=== PATIENT | male | born 1995 | race African-American/Black ===

== ENCOUNTER 2020-03-17 21:28 | Emergency (ER) | payer OTHER ==
[~2020-03-17] VITALS: Ht 172.7 cm; Wt 108.9 kg
[2020-03-17] MEDS ORDERED: NOHOMEMEDICATIONS (21:35)
[2020-03-17 23:32] VITALS: BP 130/82
== END 2020-03-17 23:39 | disposition home or self-care (01) ==
LOC: ER 21:28
DX: U07.1 COVID-19 (principal); F43.9 Reaction to severe stress, unspecified; F17.210 Nicotine dependence, cigarettes, uncomplicated